=== PATIENT | female | born 1970 | race Caucasian/White ===

== ENCOUNTER 2023-12-23 17:04 | Emergency (ER) | payer OTHER, SELFPAY ==
[2023-12-23 17:14] VITALS: BP 159/82; PULSE 91; RESP 16; TEMP 37; O2SAT 100
== END 2023-12-23 18:15 | disposition left against medical advice (07) ==
PROVIDERS: Emergency Provider Registered Nurse; PCP Family Medicine
DX: Z53.21 Procedure and treatment not carried out due to patient leaving prior to being seen by health care provider (principal)
CPT/HCPCS: 99199